=== PATIENT | female | born 1975 | race African-American/Black ===

== ENCOUNTER → 2016-12-30 13:16 | Outpatient (CLI) | payer MEDICARE ==
[2016-03-10 11:00] VITALS: BMI 26.8
[~2016-12-30 13:16] MED LIST: HYDROCODON-ACE1 EAC7 PO; HYDROCODONE-APA1 TAB PO
== END | disposition home or self-care (01) ==
LOC: D.RAD 11-11 10:30
DX: Z98.890 Other specified postprocedural states (principal)